=== PATIENT | male | born 1975 | race Caucasian/White ===

== ENCOUNTER 2017-02-22 00:13 | Emergency (ER) | payer BC, OTHER ==
[2017-02-22 00:18] VITALS: BP 137/92
--- NOTE | 2017-02-22 00:25 | EDM.PDOC ---
ED HPI GENERAL MEDICAL PROBLEM - General Chief Complaint: Lower Extremity Injury/Pain Stated Complaint: CAME BY AMBULANCE Time Seen by Provider: 02/22/17 00:17 - History of Present Illness INITIAL COMMENTS - FREE TEXT/NARRATIVE: 41-year-old male presents emergency room brought in by EMS after injuring his right knee. 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 One Was standing next to him while he was working to free another and she became weak or lost her footing and fell rolling into him pushing his lateral knee inward and catching that between the other cow. The patient had difficulty with ambulation he could stand on his leg okay but it felt very unstable and weak. He did not have significant discomfort with standing on it. Patient denies any other injuries associated with this other than his left index finger has a small laceration on it. Patient's tetanus shot is up-to-date he had a booster last year. Right Knee Pain Score (Numeric/FACES): 4 - Related Data Allergies Allergy/AdvReac Type Severity Reaction Status Date / Time No Known Allergies Allergy Verified 02/22/17 00:15 Home Meds: Home Meds . [No Known Home Meds] 02/22/17 [History] Review of Systems - Review of Systems Review Of Systems: See Below Constitutional: Reports: No Symptoms Respiratory: Reports: No Symptoms Cardiovascular: Reports: No Symptoms GI/Abdominal: Reports: No Symptoms ED EXAM, GENERAL - Physical Exam Exam: See Below Exam Limited By: No Limitations General Appearance: Alert, No Apparent Distress Respiratory/Chest: No Respiratory Distress, Lungs Clear, Normal Breath Sounds Cardiovascular: Regular Rate, Rhythm, No Edema, No Murmur Extremities: Other (Examination of his right knee shows a minimal effusion. Examination of the LCL appears to be intact the MCL has significant laxity his anterior drawer sign is positive. Neurovascular status of the foot is normal.) Skin Exam: Other (Patient is a small laceration on his left index finger that goes from the dorsal skin folds over the distal interphalangeal joint to the nail plate this is fairly superficial the patient does not want this repaired. We did apply Steri-Strips.) Course - Vital Signs Last Recorded V/S: Last Vital Signs Temp 36.4 C 02/22/17 00:15 Pulse 109 H 02/22/17 00:15 Resp 20 02/22/17 00:15 BP 137/92 H 02/22/17 00:15 Pulse Ox 100 02/22/17 00:15 - Orders/Labs/Meds Orders: Active Orders 24 hr Category Date Time Status Knee 3V Rt [CR] Stat Exams 02/22/17 00:25 Taken Durable Medical Equipment for Discharge [DME for Oth 02/22/17 01:27 Ordered Discharge] [COMM] Stat - Re-Assessments/Exams Free Text/Narrative Re-Assessment/Exam: 02/22/17 01:42 X-ray examination of his knee is negative for acute fracture dislocation grade The patient was placed in a knee immobilizer and crutches. The patient lives in [place] and will follow up with [facility] in [place] 02/22/17 01:46 The patient is ambulatory with crutches and feels much better with the knee immobilizer in place he can bear weight without difficulty or discomfort. Departure - Departure Time of Disposition: 01:44 Disposition: Home, Self-Care 01 Clinical Impression: Right knee injury - Discharge Information Referrals: PCP,None [Primary Care Provider] - Forms: ED Department Discharge Additional Instructions: Return to the emergency room with any questions problems or worsening symptoms. Motrin as needed for discomfort. Wear the knee immobilizer at all times. Use crutches all the time for getting around you may use gentle toe-touch weightbearing. Follow-up with [facility] this next week in [place] [phone] - My Orders Last 24 Hours: My Active Orders 02/22/17 00:25 Knee 3V Rt [CR] Stat 02/22/17 01:27 Durable Medical Equipment for Discharge [DME for Discharge] [COMM] Stat - Assessment/Plan Last 24 Hours: My Active Orders 02/22/17 00:25 Knee 3V Rt [CR] Stat 02/22/17 01:27 Durable Medical Equipment for Discharge [DME for Discharge] [COMM] Stat
--- NOTE | 2017-02-24 07:55 | CR ---
Right knee: Four views of the right knee were obtained. Comparison: No previous study. Medial and lateral joint spaces are maintained in height. Patellofemoral joint appears within normal limits. No discrete joint effusion is seen. No acute fracture or other abnormality is identified. Impression: 1. No bony abnormality is identified on right knee exam. Please correlate if patient's symptoms warrant further evaluation by MRI. Diagnostic code #1
== END 2017-02-22 01:59 | disposition home or self-care (01) ==
LOC: JD.ED 00:13
DX: S89.91XA Unspecified injury of right lower leg, initial encounter (principal); S61.211A Laceration without foreign body of left index finger without damage to nail, initial encounter; W50.0XXA Accidental hit or strike by another person, initial encounter
CPT/HCPCS: 73562-26-RT; 73562-RT; 99283